=== PATIENT | male | born 1970 | race Caucasian/White ===

== ENCOUNTER 2021-02-07 23:10 | Emergency (ER) | payer BC, OTHER, SELFPAY ==
--- NOTE | ~2021-02-07 | CT_ITS ---
EXAMINATION:CT chest high resolution wo hi DATE: 02/08/2021 00:28 INDICATION: Right shoulder pain. Trauma. TECHNIQUE: Computed tomography (CT) of the chest was performed without intravenous contrast. Automate d exposure control and iterative reconstruction technique were employed. The dose-length product (DLP ) was 500.08 mGy-cm. COMPARISON: None. FINDINGS: There is mild scarring at the lung apices. There is mild emphysema. There is mild atelectas is bilaterally. There are a few scattered pulmonary nodules measuring up to 6 mm in right lower lobe. No pleural effusion. The heart size is normal. No pericardial effusion. There are cysts in the liver measuring up to 19 mm. There is severe cervical spondylosis and mild thoracic spondylosis. IMPRESSION: 1. Pulmonary nodules measuring up to 6 mm, probably benign. Consider noncontrast low-dose chest CT in 6-12 months. 2. Mild emphysema. Reviewed, dictated and finalized at location A. IMPRESSION: 1. Pulmonary nodules measuring up to 6 mm, probably benign. Consider noncontras t low-dose chest CT in 6-12 months. 2. Mild emphysema.
--- NOTE | ~2021-02-07 | XR_ITS ---
EXAMINATION: XR clavicle RT DATE: 02/07/2021 23:57 INDICATION: Trauma with right clavicle pain TECHNIQUE: 3 views of the right clavicle were obtained. COMPARISON: None. FINDINGS: Alignment is normal. No fracture. Glenohumeral joint space appears normal. Mild acromioclavicular ost eoarthritis. Visualized portions of the lungs are clear. Heart size is normal. IMPRESSION: 1. No acute osseous abnormality. Reviewed, dictated and finalized at location A.
[2021-02-07 23:10] VITALS: BP 168/138; PULSE 87; RESP 20; TEMP 36.9; O2SAT 99
[2021-02-07] MEDS: ONDANSETRON INJ 4 MG/2 ML VIAL IV PUSH (23:35)
[2021-02-07] MEDS: HYDROmorphone HCL INJ (*CRX) 2 MG/ML VIAL 1 MG IV PUSH (23:35)
--- NOTE | 2021-02-07 23:40 | ED.UPPEXIN ---
HPI - Extremity Injury (Upper) General Chief Complaint: Extremity Injury, Upper Stated Complaint: shoulder pain Time Seen by Provider: 02/07/21 23:39 Source: patient and RN notes reviewed Mode of arrival: wheelchair Limitations: no limitations History of Present Illness HPI narrative: Patient states his shoe got caught under a door as a closed he fell forward onto his right shoulder. complaint: injury to: right and shoulder Onset (ago): minute(s) (15) Handedness: right Place: outdoors Severity: severe Relieving factors: none Exacerbating factors: movement of extremity Context: direct blow Related Data Home Medications Medication Instructions Recorded Confirmed No Home Medications 02/07/21 02/07/21 Allergies Allergy/AdvReac Type Severity Reaction Status Date / Time No Known Allergies Allergy Verified 02/07/21 23:54 Review of Systems Review of Systems: All systems reviewed & are unremarkable except as noted in HPI and below PMFSH Past Medical History Medical History (Updated 02/08/21 @ 00:52 by Will Alvarenga MD) No active medical problems Surgical History Surgical History (Updated 02/07/21 @ 23:41 by Will Alvarenga MD) No pertinent past surgical history Social History Social History (Updated 02/07/21 @ 23:42 by Will Alvarenga MD) Smoking packs per day: 1 Smoking cigarettes per day: 20.0 Smoking status: Current every day smoker Tobacco type: cigarettes Alcohol intake: current Alcohol use details: occasional Substance use: current Substance use type: marijuana Other substance usage details: occasional Exam Const: General: healthy appearing and in distress moderate and other ( in pain) Nutritional Appearance: well nourished Orientation/consciousness: patient oriented x3 HENMT: Head: normal to inspection Ears: external ears normal Face and sinus: normal facial exam Mouth: Yes moist mucous membranes Eyes: Conjunctivae: conjunctivae normal Pupils: Equal, round and reactive pupils present EOM: EOMs intact bilaterally Neck: Neck: normal visual inspection Resp: Effort & Inspection: normal respiratory effort Auscultation: clear to auscultation bilaterally Cardio: Rate: tachycardic Rhythm: regular rhythm GI: GI Palp: Yes Soft to palpation and No Tenderness to palpation present (GI) Auscultation: normal bowel sounds Back/Spine/Pelvis: Cervical Spine: cervical ROM normal Thoracic/Lumbar Spine: thoraco-lumbar ROM normal Skin: General skin exam: normal color Rashes: no rashes Neuro: General: patient oriented x3 and no focal motor deficits Speech: normal speech Extrem: General: no clubbing, cyanosis or edema Right upper extremity: shoulder/upper arm tenderness of the clavicle mid-shaft and laterally and abnormal ROM held in an abnormal fashion in ABduction, in flexion and in internal rotation, pain with active ROM and pain with passive ROM Psych: Appearance: grossly normal and well kempt Mental Status: mental status grossly normal Affect: normal affect Attitude: cooperative Thought content: Yes Normal thought content present Course Vital Signs Vital signs: Vital Signs Temperature 36.9 C 02/07/21 23:10 Pulse Rate 87 02/07/21 23:10 Respiratory Rate 20 02/07/21 23:10 Blood Pressure 168/138 H 02/07/21 23:10 Pulse Oximetry 99 02/07/21 23:10 Temperature 37.1 C 02/08/21 00:53 Pulse Rate 87 02/08/21 00:53 Respiratory Rate 20 02/08/21 00:53 Blood Pressure 178/88 H 02/08/21 00:53 Pulse Oximetry 98 02/08/21 00:53 Discharge Plan Discharge Clinical Impression: Chest wall contusion Qualifiers: Encounter type: initial encounter Laterality: right Qualified Code(s): S20.211A - Contusion of right front wall of thorax, initial encounter Patient Disposition: Home, Self-Care Condition: Improved Instructions: Contusion in Adults (ED) Additional Instructions: use Tylenol and/or Motrin as needed for pain. Use sling
[2021-02-07 23:55] VITALS: BP 160/108
[2021-02-08 00:53] VITALS: BP 178/88; PULSE 87; RESP 20; TEMP 37.1; O2SAT 98
== END 2021-02-08 00:55 | disposition home or self-care (01) ==
PROVIDERS: Emergency Provider Emergency Medicine
DX: S20.211A Contusion of right front wall of thorax, initial encounter (principal); W22.8XXA Striking against or struck by other objects, initial encounter
CPT/HCPCS: 71250; 73000; 96374; 96375; 99282; 99284; A4565; J1170; J2405

== ENCOUNTER 2024-06-23 10:08 | Emergency (ER) | payer OTHER, SELFPAY ==
[2024-06-23] VITALS (7 sets, daily range): BP systolic 111–167; BP diastolic 67–142; PULSE 80–102; RESP 16–18; TEMP 36.6; O2SAT 99–100
--- NOTE | 2024-06-23 11:31 | PC.NURSE ---
Pt found sitting on edge of bed on cellphone. Pt self removed from monitors and is dressed in his personal clothing. Pt educated on importance of being on monitors, pt declined at this time.
--- NOTE | 2024-06-23 12:09 | PC.NURSE ---
Pt states he was going to go see his PCP for his seizures. Pt was advised to return to the nearest ER if anything changes or worsens.
== END 2024-06-23 12:22 | disposition left against medical advice (07) ==
LOC: ANHED 12:11
DX: G40.909 Epilepsy, unspecified, not intractable, without status epilepticus (principal)
CPT/HCPCS: 99199